=== PATIENT | male | born 1995 | race Caucasian/White ===

== ENCOUNTER 2023-10-12 09:41 | Inpatient (IN) | payer OTHER, SELFPAY ==
[~2023-10-12] VITALS: Ht 177.8 cm; Wt 105.1 kg
[2023-10-12] MEDS: NS IV ONE (10:23)
[2023-10-12] MEDS: METOCLOPRAMIDE INJ 10MG/2ML VIAL IV ONE (10:23)
[2023-10-12 10:34] LABS: HEMATOCRIT 50.7 % (42.0-52.0); HEMOGLOBIN 18.9 g/dl (13.5-17.5); MEAN CORPUSCULAR HEMOGLOBIN 31.8 pg (27.0-33.0); MEAN CORPUSCULAR HGB CONC 37.3 g/dl (32.0-36.5); MEAN CORPUSCULAR VOLUME 85.4 fl (80.0-96.0); PLATELET COUNT, AUTOMATED 246 10^3/uL (150-450); RED BLOOD COUNT 5.94 10^6/uL (4.30-6.10)
[2023-10-12 11:08] LABS: ALBUMIN 4.5 G/DL (3.2-5.2); BILIRUBIN,DIRECT 0.5 MG/DL (<0.4); BILIRUBIN,TOTAL 1.7 MG/DL (0.3-1.2); CALCIUM LEVEL 10.3 MG/DL (8.5-10.1); CREATININE FOR GFR 1.72 MG/DL (0.70-1.30); GLOMERULAR FILTRATION RATE 50.3 (>60); POTASSIUM SERUM 4.2 MMOL/L (3.5-5.1); TOTAL PROTEIN 8.3 G/DL (5.7-8.2)
[2023-10-12] MEDS ORDERED: ISOVUE-370 76% 100ML VIAL As Ordered ONE (11:17)
[2023-10-12 11:25] LABS: BASOPHILS 1 % (0-1); LYMPHOCYTES 5 % (16-44); METAMYELOCYTES 8 % (0-0); MONOCYTES 7 % (0-5); NEUTROPHILS 67 % (28-66)
[2023-10-12 11:26] LABS: PLATELET ESTIMATE NORMAL (NORMAL)
[2023-10-12] MEDS: KETOROLAC 30 MG/ML 1ML VIAL IV ONE (13:00)
[2023-10-12] MEDS: cefTRIAXone SOD 1 GM in D5W MINI-BAG PLUS 50 ML IV ONE (13:01)
[2023-10-12 13:33] LABS: PROCALCITONIN 0.65 ng/ml
[2023-10-12] MEDS ORDERED: IBUP200C25 PO (13:54)
[2023-10-12] MEDS ORDERED: ACET-683 PO (13:54)
[2023-10-12] MEDS ORDERED: HOME MED LIST COMPLETE! XX SCH (13:55)
[2023-10-12] MEDS ORDERED: PIPERACILLIN/TAZOBACTAM SOD 3.375 GM in D5W MINI-BAG PLUS 50 ML IV SCH (15:00)
[2023-10-12 15:32] VITALS: BP 145/89; TEMP 98; O2SAT 99
[2023-10-12] MEDS: HEPARIN SOD (PORCINE) 5000UNITS/ML 1ML VIAL/SYRINGE SC SCH (15:51)
[2023-10-12] MEDS: PANTOPRAZOLE 40MG VIAL IV SCH (15:51)
[2023-10-12] MEDS: NS 1,000 ML IV SCH (15:52)
[2023-10-12] MEDS: ONDANSETRON 4MG 2ML VIAL IV PRN (15:56)
[2023-10-12] MEDS: MORPHINE 2 MG/ML 1ML VIAL IV PRN (16:58)
[2023-10-12 19:00] VITALS: BP 136/73; TEMP 102; O2SAT 96
[2023-10-12] MEDS: ACETAMINOPHEN TAB 650MG DOSE (2X325MG) PO PRN (20:51)
[2023-10-12] MEDS: CIPROFLOXACIN 400 MG in IV 1 EA IV SCH (20:52)
[2023-10-13] VITALS: BP 129/84; TEMP 99.3; O2SAT 98
[2023-10-13 03:18] VITALS: BP 135/81; TEMP 99.9; O2SAT 99
[2023-10-13 05:54] LABS: HEMATOCRIT 39.3 % (42.0-52.0); MEAN CORPUSCULAR HEMOGLOBIN 32.3 pg (27.0-33.0); MEAN CORPUSCULAR HGB CONC 37.4 g/dl (32.0-36.5); MEAN CORPUSCULAR VOLUME 86.4 fl (80.0-96.0); PLATELET COUNT, AUTOMATED 185 10^3/uL (150-450); RED BLOOD COUNT 4.55 10^6/uL (4.30-6.10); WHITE BLOOD COUNT 5.1 10^3/uL (4.0-10.0)
[2023-10-13 05:55] LABS: HEMOGLOBIN 14.7 g/dl (13.5-17.5)
[2023-10-13 05:58] LABS: BLOOD UREA NITROGEN 17 MG/DL (9-23); CALCIUM LEVEL 8.6 MG/DL (8.5-10.1); CARBON DIOXIDE LEVEL 22 MMOL/L (20-31); CHLORIDE LEVEL 104 MMOL/L (98-107); CREATININE FOR GFR 1.06 MG/DL (0.70-1.30); GLOMERULAR FILTRATION RATE > 60.0 (>60); GLUCOSE, FASTING 100 MG/DL (60-100); POTASSIUM SERUM 3.8 MMOL/L (3.5-5.1); SODIUM LEVEL 134 MMOL/L (136-145)
[2023-10-13 06:25] VITALS: BP 123/71; TEMP 99.3; O2SAT 97
[2023-10-13] MEDS: DICYCLOMINE 10 MG CAP PO PRN (14:44)
[2023-10-13 16:16] VITALS: BP 145/91; TEMP 98.5; O2SAT 97
[2023-10-13] MEDS ORDERED: DICY1CAP8 PO (16:47)
[2023-10-13] MEDS ORDERED: CIPR500T39 PO (16:47)
[2023-10-13] MEDS ORDERED: ONDA-83 PO (16:47)
[2023-10-13] MEDS ORDERED: PROB250C PO (16:47)
[2023-10-13] MEDS: CIPROFLOXACIN 500MG TABLET PO SCH (17:11)
[2023-10-13] MEDS: LACTOBACILLUS ACIDOPHILUS CAP (BACID) PO SCH (17:11)
== END 2023-10-13 18:15 | disposition home or self-care (01) | DRG 872 ==
LOC: M ED 09:41 → M ED INP 14:02 → M PCU 15:30
PROVIDERS: ADMIT Internal Medicine; ATTEND Internal Medicine
DX: A41.9 Sepsis, unspecified organism (principal); A02.0 Salmonella enteritis; N17.9 Acute kidney failure, unspecified; E87.1 Hypo-osmolality and hyponatremia; R65.20 Severe sepsis without septic shock; E83.52 Hypercalcemia; E86.0 Dehydration; Z11.52 Encounter for screening for COVID-19

== ENCOUNTER 2023-11-09 13:53 | Emergency (ER) | payer OTHER ==
[~2023-11-09] VITALS: Ht 177.8 cm; Wt 102.3 kg
[~2023-11-09 13:53] MED LIST changes: -ELIQ5TAB PO; -XARE15TA PO
[2023-11-09 16:30] VITALS: TEMP 98.3; O2SAT 98
[2023-11-09 16:47] LABS: HEMATOCRIT 48.6 % (42.0-52.0); MEAN CORPUSCULAR HEMOGLOBIN 31.5 pg (27.0-33.0); PLATELET COUNT, AUTOMATED 308 10^3/uL (150-450); WHITE BLOOD COUNT 4.6 10^3/uL (4.0-10.0)
[2023-11-09 17:37] LABS: BLOOD UREA NITROGEN 16 MG/DL (9-23); CALCIUM LEVEL 10.1 MG/DL (8.5-10.1); CARBON DIOXIDE LEVEL 28 MMOL/L (20-31); CHLORIDE LEVEL 102 MMOL/L (98-107); CREATININE FOR GFR 1.01 MG/DL (0.70-1.30); GLOMERULAR FILTRATION RATE > 60.0 (>60); GLUCOSE, FASTING 92 MG/DL (60-100); SODIUM LEVEL 138 MMOL/L (136-145)
[2023-11-09] MEDS ORDERED: ELIQ5TAB PO (17:42)
[2023-11-09] MEDS: APIXABAN 5 MG TAB (ELIQUIS) PO ONE (17:48)
[2023-11-09 17:56] VITALS: BP 170/100
[2023-11-09] MEDS ORDERED: XARE15TA PO (19:44)
== END 2023-11-09 18:02 | disposition home or self-care (01) ==
LOC: M ED 13:53
DX: I82.612 Acute embolism and thrombosis of superficial veins of left upper extremity (principal); F10.10 Alcohol abuse, uncomplicated; Z79.1 Long term (current) use of non-steroidal anti-inflammatories (NSAID); Z79.2 Long term (current) use of antibiotics; Z79.899 Other long term (current) drug therapy

== ENCOUNTER → 2023-11-09 | Outpatient (CLI) | payer OTHER ==
[~2023-11-09] MED LIST: ACET-683 PO; CIPR500T39 PO; DICY1CAP8 PO; ELIQ5TAB PO; IBUP200C25 PO; ONDA-83 PO; PROB250C PO; XARE15TA PO
== END ==
LOC: M RAD 10:35
PROVIDERS: ATTEND Nurse Practitioner Family
DX: I80.9 Phlebitis and thrombophlebitis of unspecified site (principal)

== ENCOUNTER → 2023-11-15 | Outpatient (REF) | payer OTHER ==
[~2023-11-15] MED LIST changes: +ELIQ5TAB PO; +XARE15TA PO
[2023-11-15 13:46] LABS: MAU/CREAT RATIO 7.9 MCG/MG (0.0-30.0)
[2023-11-15 15:26] LABS: CHOLESTEROL RISK RATIO 4.54 (<5); HDL CHOLESTEROL 38.5 MG/DL (>40); LDL CHOLESTEROL 94.9 MG/DL (<100); NON-HDL-C 136.5 MG/DL
[2023-11-15 15:27] LABS: THYROID STIMULATING HORMONE 2.521 uIU/ML (0.55-4.78)
== END ==
LOC: M LAB REF 12:35
PROVIDERS: ATTEND Nurse Practitioner Family
DX: I82.629 Acute embolism and thrombosis of deep veins of unspecified upper extremity (principal); E66.3 Overweight

== ENCOUNTER 2024-03-09 06:38 | Day surgery (SDC) | payer OTHER ==
[~2024-03-09] VITALS: Ht 177.8 cm; Wt 104.3 kg
[2024-03-09] MEDS: ceFAZolin SOD 2 GM in IV 1 EA IV ONE (09:24)
[2024-03-09] MEDS: MORPHINE 4 MG/ML 1ML VIAL IV ONE (09:25)
[2024-03-09] MEDS: ONDANSETRON 4MG 2ML VIAL IV ONE (09:25)
[2024-03-09] MEDS: BOOSTRIX VACCINE (TETANUS/DIPHTH/ACEL. PERTUSSIS) 0.5ML SYR IM ONE (11:30)
[2024-03-09] MEDS: MORPHINE 4 MG/ML 1ML VIAL IV PRN (11:33)
[2024-03-09] MEDS ORDERED: HOME MED LIST COMPLETE! XX SCH (12:30)
[2024-03-09] MEDS ORDERED: fentaNYL 100 MCG/2 ML INJECTION As Ordered ONE (16:07)
[2024-03-09] MEDS ORDERED: LIDOCAINE 2% 100MG/5ML SDV (FOR ANES.) As Ordered ONE (16:07)
[2024-03-09] MEDS ORDERED: propofoL 200 MG/20 ML VIAL As Ordered ONE (16:07)
[2024-03-09] MEDS ORDERED: MIDAZOLAM INJ 2MG/2ML VIAL As Ordered ONE (16:07)
[2024-03-09] MEDS ORDERED: ONDANSETRON 4MG 2ML VIAL As Ordered ONE (16:07)
[2024-03-09] MEDS ORDERED: ACETAMINOPHEN 1000MG/100ML IV BAG As Ordered ONE (16:12)
[2024-03-09] MEDS ORDERED: dexmedeTOMIDine (4MCG/ML)200MCG/50ML BTL (PRECEDEX) As Ordered ONE (16:59)
[2024-03-09] MEDS: GENTAMICIN SULF 80MG/2ML VIAL As Ordered ONE (17:49)
[2024-03-09] MEDS: ceFAZolin 2 GM/D5W 50 ML IV BAG As Ordered ONE (17:49)
[2024-03-09] MEDS: LIDOCAINE 2% MDV 20ML VIAL As Ordered ONE (17:49)
[2024-03-09] MEDS ORDERED: PHENYLephrine 500MCG 5ML (100MCG/ML) SYRINGE As Ordered ONE (18:12)
[2024-03-09 19:24] VITALS: BP 132/68; TEMP 97.2; O2SAT 88
== END 2024-03-09 19:31 | disposition home or self-care (01) ==
LOC: M ED 06:38 → M SDC 06:39
PROVIDERS: ATTEND Podiatrist
DX: S92.512B Displaced fracture of proximal phalanx of left lesser toe(s), initial encounter for open fracture (principal); S96.112A Strain of muscle and tendon of long extensor muscle of toe at ankle and foot level, left foot, initial encounter; W22.09XA Striking against other stationary object, initial encounter; Y93.K1 Activity, walking an animal; Y92.9 Unspecified place or not applicable
CPT/HCPCS: 11012; 28525; 73630; 73660; 76000; 87070; 87077; 87186; 90715; 99285; C1713; J0131; J0665; J0690; J1100; J1580; J2250; J2371; J2405; J3010